=== PATIENT | female | born 1965 | race Caucasian/White ===

== ENCOUNTER 2020-02-03 11:43 | Emergency (ER) | payer OTHER ==
[2020-02-03 13:32] LABS: Urine Blood TRACE (NEG); Urine Glucose NEGATIVE (NEG); Urine Protein NEGATIVE (NEG); Urine pH 6.5 (5.0-7.0)
[2020-02-03 13:40] LABS: Urine Bacteria NONE SEEN /HPF (<20); Urine Culture Reflex Order NOT NEEDED; Urine RBC <5 /HPF (NONE SEEN)
--- NOTE | 2020-02-03 13:56 | RAD REPORT ---
EXAM DESCRIPTION: CT - Head Brain Wo Cont - 02/03/2020 1:50 pm CLINICAL HISTORY: sinus pain x 2 weeks, headache COMPARISON: No comparisons TECHNIQUE: Axial 5 mm thick images of the head were obtained without IV contrast. All CT scans are performed using dose optimization technique as appropriate and may include automated exposure control or mA/KV adjustment according to patient size. FINDINGS: No intracranial hemorrhage, mass, edema or shift of mid-line structures. No acute infarcti on changes seen. No abnormal extra-axial fluid collections. Ventricles are normal. Mastoid air cells and visualized portions of the paranasal sinuses are clear. No acute bony findings. IMPRESSION: No intracranial abnormality identified. Sinuses are clear.
--- NOTE | 2020-02-03 15:11 | ER ---
Nurse's Notes [facility] Name: Ann-Marie Cid Age: 54 yrs Sex: Female : 1965 Arrival Date: 02/03/2020 Time: 11:47 Bed 14 Private MD: Diagnosis: Bronchitis, not specified as acute or chronic Presentation: 02/02 12:10 Chief complaint: Patient states: For the past 2 weeks, Sinus pressure without drainage, ca1 dry non-productive cough, sore throat, SOB with exertion, extreme fatigue. Within the 2 weeks, has been tested twice for Covid-19, both resulted NEGATIVE. 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 Coronavirus screen: Client denies travel out of the [place] in the last 14 days. congestion, cough unrelated to allergies, fatigue, shortness of breath, sore throat, Client presents with at least one sign or symptom that may indicate coronavirus-19. Standard/surgical mask placed on the client. Provider contacted for isolation considerations. The client reports previous COVID testing was negative. Staff notified of need for isolation. Ebola Screen: Patient negative for fever greater than or equal to 101.5 degrees Fahrenheit, and additional compatible Ebola Virus Disease symptoms Patient denies exposure to infectious person. Patient denies travel to an Ebola-affected area in the 21 days before illness onset. No symptoms or risks identified at this time. Initial Sepsis Screen: Does the patient meet any 2 criteria? No. Patient's initial sepsis screen is negative. Does the patient have a suspected source of infection? No. Patient's initial sepsis screen is negative. Risk Assessment: Do you want to hurt yourself or someone else? Patient reports no desire to harm self or others. Onset of symptoms was February 03, 2020. 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 - Social history:: Smoking status: Patient reports the use of cigarette tobacco products, smokes one pack cigarettes per day. Screenin:30 Abuse screen: Denies threats or abuse. Nutritional screening: No deficits noted. aa5 Tuberculosis screening: No symptoms or risk factors identified. Fall Risk None identified. Assessment: 12:30 General: Appears comfortable, Behavior is calm, cooperative. Pain: Complains of pain in aa5 forehead, right cheek and left cheek Quality of pain is described as pressure. Neuro: Level of Consciousness is awake, alert, obeys commands, Oriented to person, place, time, situation. Cardiovascular: Heart tones S1 S2 present Rhythm is regular. Respiratory: Reports shortness of breath on exertion cough that is dry, Airway is patent Respiratory effort is even, unlabored, Respiratory pattern is regular, symmetrical, Breath sounds are clear bilaterally. GI: No signs and/or symptoms were reported involving the gastrointestinal system. Patient currently denies nausea, vomiting. : No signs and/or symptoms were reported regarding the genitourinary system. EENT: Reports sore throat . Derm: Skin is pink, warm \T\ dry. Musculoskeletal: Range of motion: intact in all extremities. 13:44 Reassessment: Patient is alert, oriented x 3, equal unlabored respirations, skin aa5 warm/dry/pink. Pt back from CT via wheelchair. X-ray contacted and Jenna Ferguson-stephane tech states x-ray will be completed in approximately 30 minutes, pt notified. . 14:30 Reassessment: Patient is alert, oriented x 3, equal unlabored respirations, skin aa5 warm/dry/pink. x-ray completed at bedside . Vital Signs: 12:10 BP 143 / 89; Pulse 72; Resp 15 S; Temp 97.9(O); Pulse Ox 99% on R/A; Weight 63.5 kg ca1 (R); Height 5 ft. 2 in. (157.48 cm) (R); Pain 0/10; 16:12 BP 132 / 91; Pulse 77; Resp 16; Pulse Ox 99% ; sv 12:10 Body Mass Index 25.61 (63.50 kg, 157.48 cm) ca1 ED Course: 11:47 Patient arrived in ED. ag5 12:06 Nona Alcantar RN is Primary Nurse. aa5 12:07 Yanni Johnson FNP-C is PHCP. snw 12:07 Marcelino March MD is Attending Physician. snw 12:14 Triage completed. ca1 12:14 Arm band placed on right wrist. ca1 12:30 Patient has correct armband on for positive identification. Bed in low position. Call aa5 light in reach. Side rails up X2. 13:50 CT Head Brain wo Cont In Process Unspecified. EDMS 14:48 Chest Single View XRAY In Process Unspecified. EDMS 16:12 No provider procedures requiring assistance completed. Patient did not have IV access sv during this emergency room visit. Administered Medications: No medications were administered Outcome: 15:10 Discharge ordered by . snw 16:12 Discharged to home ambulatory. sv 16:12 Condition: stable 16:12 Discharge instructions given to patient, Instructed on discharge instructions, follow up and referral plans. medication usage, Demonstrated understanding of instructions, follow-up care, medications, Prescriptions given X x6 16:13 Patient left the ED. sv Signatures: Dispatcher [employer] EDWV Funmilayo Shah RN RN Yanni Henry, BULK PIGMENT REDUCER-C BULK PIGMENT REDUCER-Timw Nona Alcantar RN RN aa5 Whit Roman RN RN ca1 [place], [place] ag5 Corrections: (The following items were deleted from the chart) 16:13 16:12 Discharge instructions given to patient, Instructed on discharge instructions, sv follow up and referral plans. medication usage, Demonstrated understanding of instructions, follow-up care, medications, Prescriptions given X 4, sv
--- NOTE | 2020-02-03 15:11 | EDPHYS ---
Physician Documentation [facility] Name: Ann-Marie Cid Age: 54 yrs Sex: Female : 1965 Arrival Date: 02/03/2020 Time: 11:47 Bed 14 Private MD: YEN Physician Marcelino March HPI: 02/02 14:00 This 54 yrs old Female presents to ER via Ambulatory with complaints of snw Shortness Of Breath, Cough. 14:00 The patient has shortness of breath at rest, with light activity. Onset: The snw symptoms/episode began/occurred suddenly, 2 week(s) ago, and became persistent. Duration: The symptoms are continuous. Associated signs and symptoms: Pertinent positives: non-productive cough, severe fatigue. Severity of symptoms: At their worst the symptoms were moderate severe. The patient has not experienced similar symptoms in the past. CoVid 19 test x 2, negative results. 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 - Social history:: Smoking status: Patient reports the use of cigarette tobacco products, smokes one pack cigarettes per day. ROS: 13:59 Constitutional: Negative for fever, chills, and weight loss, severe, unrelenting snw fatigue Eyes: Negative for injury, pain, redness, and discharge, ENT: Negative for injury and discharge, congestion and sinus pain Neck: Negative for injury, pain, and swelling, Cardiovascular: Negative for chest pain, palpitations, and edema, Abdomen/GI: Negative for abdominal pain, nausea, vomiting, diarrhea, and constipation. 13:59 Back: Negative for injury and pain, MS/Extremity: Negative for injury and deformity, Skin: Negative for injury, rash, and discoloration. 13:59 Respiratory: Positive for cough, shortness of breath. 13:59 Neuro: Positive for headache. Exam: 13:58 Constitutional: This is a well developed, well nourished patient who is awake, alert, snw and in no acute distress. Head/Face: Normocephalic, atraumatic. Eyes: Pupils equal round and reactive to light, extra-ocular motions intact. Lids and lashes normal. Conjunctiva and sclera are non-icteric and not injected. Cornea within normal limits. Periorbital areas with no swelling, redness, or edema. ENT: Nares patent. No nasal discharge, no septal abnormalities noted. Tympanic membranes are normal and external auditory canals are clear. Oropharynx with no redness, swelling, or masses, exudates, or evidence of obstruction, uvula midline. Mucous membranes moist. Neck: Trachea midline, no thyromegaly or masses palpated, and no cervical lymphadenopathy. Supple, full range of motion without nuchal rigidity, or vertebral point tenderness. No Meningismus. Chest/axilla: Normal chest wall appearance and motion. Nontender with no deformity. No lesions are appreciated. Cardiovascular: Regular rate and rhythm with a normal S1 and S2. No gallops, murmurs, or rubs. Normal PMI, no JVD. No pulse deficits. Abdomen/GI: Soft, non-tender, with normal bowel sounds. No distension or tympany. No guarding or rebound. No evidence of tenderness throughout. Back: No spinal tenderness. No costovertebral tenderness. Full range of motion. Skin: Warm, dry with normal turgor. Normal color with no rashes, no lesions, and no evidence of cellulitis. MS/ Extremity: Pulses equal, no cyanosis. Neurovascular intact. Full, normal range of motion. Neuro: Awake and alert, GCS 15, oriented to person, place, time, and situation. Cranial nerves II-XII grossly intact. Motor strength 5/5 in all extremities. Sensory grossly intact. Cerebellar exam normal. Normal gait. Psych: Awake, alert, with orientation to person, place and time. Behavior, mood, and affect are within normal limits. 13:58 Respiratory: the patient does not display signs of respiratory distress, Respirations: normal, Breath sounds: bronchial sounds, bronchitic cough. Vital Signs: 12:10 BP 143 / 89; Pulse 72; Resp 15 S; Temp 97.9(O); Pulse Ox 99% on R/A; Weight 63.5 kg ca1 (R); Height 5 ft. 2 in. (157.48 cm) (R); Pain 0/10; 16:12 BP 132 / 91; Pulse 77; Resp 16; Pulse Ox 99% ; sv 12:10 Body Mass Index 25.61 (63.50 kg, 157.48 cm) ca1 MDM: 12:07 Patient medically screened. snw 15:17 Data reviewed: vital signs, nurses notes. Data interpreted: Pulse oximetry: on room air snw is 99 %. Interpretation: acceptable. Counseling: I had a detailed discussion with the patient and/or guardian regarding: the historical points, exam findings, and any diagnostic results supporting the discharge/admit diagnosis, the presence of at least one elevated blood pressure reading (>120/80) during this emergency department visit, radiology results, the need for outpatient follow up, to return to the emergency department if symptoms worsen or persist or if there are any questions or concerns that arise at home. Special discussion: Based on the history and exam findings, there is no indication for further emergent testing or inpatient evaluation. I discussed with the patient/guardian the need to see the primary care provider for further evaluation of the symptoms. 02/02 13:22 Order name: Urine Culture snw 02/02 13:22 Order name: Urine Microscopic Only; Complete Time: 13:47 snw 02/02 13:22 Order name: Chest Single View XRAY; Complete Time: 15:35 snw 02/02 13:22 Order name: CT Head Brain wo Cont; Complete Time: 14:03 snw 02/02 13:22 Order name: Urine Dipstick-Ancillary (obtain specimen); Complete Time: 13:24 snw 02/02 13:29 Order name: Urine Dipstick--Ancillary (enter results); Complete Time: 13:47 bd Administered Medications: No medications were administered Disposition: 17:42 Co-signature as Attending Physician, Marcelino March MD I agree with the assessment and gordon plan of care. Disposition: 02/03/20 15:10 Discharged to Home. Impression: Bronchitis, not specified as acute or chronic. - Condition is Stable. - Discharge Instructions: Acute Bronchitis, Adult, Hypertension, How to Use an Inhaler, Cool Mist Vaporizer, COVID-19. - Prescriptions for Zinc (with A and C) Lozenges - take 1 lozenge by ORAL route 1-2 times daily; 40 lozenge. Tessalon Perles 100 mg Oral Capsule - take 1 capsule by ORAL route every 8 hours As needed; 15 capsule. Zithromax Z- Rick 250 mg Oral Tablet - take 1 tablet by ORAL route as directed for 5 days Day 1 - take two (2) tablets one time. Day 2, 3, 4 , 5 take one (1) tablet once daily.; 6 tablet. Prednisone 20 mg Oral Tablet - take 2 tablet by ORAL route once daily for 5 days; 10 tablet. Albuterol Sulfate 90 mcg/actuation - inhale 1-2 puff by INHALATION route every 4-6 hours; 1 Inhaler. Pepcid 20 mg Oral Tablet - take 1 tablet by ORAL route once daily; 20 tablet. - Work release form, Medication Reconciliation Form, Thank You Letter, Antibiotic Education, Prescription Opioid Use form. - Follow up: Emergency Department; When: As needed; Reason: Worsening of condition. Follow up: Private Physician; When: 2 - 3 days; Reason: Recheck today's complaints, Continuance of care, Re-evaluation by your physician. Signatures: Dispatcher [employer] Funmilayo Nichols RN RN sv Anderson, Corey, MD MD cha Waters, Shelly, DIRECTOR WEB-C DIRECTOR WEB-Timw Whit Roman RN RN ca1 Corrections: (The following items were deleted from the chart) 16:13 15:10 02/03/2020 15:10 Discharged to Home. Impression: Bronchitis, not specified as sv acute or chronic. Condition is Stable. Forms are Medication Reconciliation Form, Thank You Letter, Antibiotic Education, Prescription Opioid Use. Follow up: Emergency Department; When: As needed; Reason: Worsening of condition. Follow up: Private Physician; When: 2 - 3 days; Reason: Recheck today's complaints, Continuance of care, Re-evaluation by your physician. snw
--- NOTE | 2020-02-03 15:33 | RAD REPORT ---
EXAM DESCRIPTION: Ariel Single View02/03/2020 2:48 pm CLINICAL HISTORY: Cough COMPARISON: none FINDINGS: Lungs are hyperaerated. The lungs appear clear of acute infiltrate. The heart is normal size IMPRESSION: No acute abnormalities displayed
[2020-02-03 16:25] VITALS: TEMP 97.9; O2SAT 99
[2020-02-03 16:27] VITALS: BP 132/91
== END 2020-02-03 16:13 | disposition home or self-care (01) ==
LOC: ER 11:43
DX: J40 Bronchitis, not specified as acute or chronic (principal); F17.210 Nicotine dependence, cigarettes, uncomplicated; Z98.82 Breast implant status
CPT/HCPCS: 70450; 71045; 81003; 81015; 87086; 87088; 99283